=== PATIENT | male | born 1940 | race Caucasian/White ===

== ENCOUNTER → 2023-10-20 06:39 | Day surgery (SDC) | payer MEDICARE, SELFPAY | LOC: GI 06:39 | PROVIDERS: ATTENDING PHYSICIAN Internal Medicine Gastroenterology | DX: K29.50 Unspecified chronic gastritis without bleeding (principal); K44.9 Diaphragmatic hernia without obstruction or gangrene; K31.89 Other diseases of stomach and duodenum; K31.7 Polyp of stomach and duodenum; Q39.9 Congenital malformation of esophagus, unspecified; R10.13 Epigastric pain | CPT/HCPCS: 43239; 88305; 88342 ==

== ENCOUNTER 2023-11-10 23:39 | Emergency (ER) | payer MEDICARE, SELFPAY ==
[2023-11-10 23:39] VITALS: BMI 27.9
[2023-11-10 23:48] VITALS: BP 127/87
--- NOTE | 2023-11-11 00:07 | ED.GENMED ---
Addendum entered and electronically signed by Fallon Jerry NP 11/11/23 09:09:
Patient informed of positive norovirus stool culture. He states he has had no further diarrhea and is feeling better.
Original Note:
History of Present Illness
General
Chief Complaint: Abdominal Symptoms
Time Seen by Provider: 11/10/23 23:51
Travel History
Have you had any contact with someone who has COVID-19?: No
Do you have any symptoms of coronavirus? Fever > 100 degrees, chills, cough, shortness of breath, sore throat, loss of taste or smell, muscle aches, or headache?: No
History of Present Illness
History of Present Illness:
82-year-old male with history of hypertension, hyperlipidemia, and mitral valve prolapse presents to the emergency department for evaluation of acute onset nausea, vomiting, diarrhea, and low-grade fever beginning earlier today. He has had multiple
diarrheal bowel movements. Denies any hematemesis or hematochezia. Denies any abdominal pain at present. Temp recorded at home was 100.2. Has not been able to tolerate any oral fluids. No ill contacts at home
Past History
Past History
ED Past Medical History: Cancer (Prostate cancer), GERD, HTN, Hypercholesterolemia, Valvular disease (Mitral valve prolapse), Psychiatric (Anxiety) and Other (Syncope, Diverticulosis)
ED Past Surgical History: Cholecystectomy and Urological (Prostatectomy 09/30/2014)
Social History
Tobacco: Former smoker
Alcohol: Occasional
Drug: None
Personal:
Living: with family
Employment: Retired
Family History
Family History: Other (Noncontributory)
Review of Systems
Review of Systems
Allergies reviewed?: Yes
All Other Systems: ROS reviewed and negative except as documented in HPI and ROS
Phy Exam
Physical Exam
Physical Exam:
GEN: Well appearing, NAD, WDWN
Eyes: PERRLA, EOMs intact, no scleral icterus
HENT: NCAT, oral mucosa dry,
Lungs: CTAB, no wheezes, rales, rhonchi, normal chest wall excursion
Cardiac: Tachycardic, regular
Abdomen: S, NT, ND, NABS, no masses or hepatosplenomegaly
Neuro: AO x 3
MSK: No gross deformity or ecchymosis.
Skin: No rashes, petechiae. Normal color, no pallor or jaundice.
Psych: Calm, cooperative, proper hygiene
Course
Orders/Labs/Results
Orders:
Orders
11/11/23 00:06
Ondansetron Injectable [Zofran] 4 mg IV NOW STA
11/11/23 00:07
Lactated Ringers [Lr] 1,000 ml IV BOLUS
11/11/23 00:10
Complete Blood Count/With Diff Urgent
Comprehensive Metabolic Panel Urgent
Lipase Urgent
11/11/23 01:10
Lactated Ringers [Lr] 500 ml IV BOLUS
11/11/23 02:47
C difficile Antigen & Toxins Urgent
NICOLASA Source: Feces/Stool
Specimen Description:
Date Specimen was Collected: 11/11/23
Time Specimen was Collected: 02:44
Norovirus by PCR Urgent
NICOLASA Source: Feces/Stool
Specimen Description:
Date Specimen was Collected: 11/11/23
Time Specimen was Collected: 02:44
Abnormal Lab Results
11/11/23
00:10
WBC 12.0 H 10^3/uL
(4.8-10.8)
MPV 10.6 H fL
(7.4-10.4)
Abs Immat Gran (auto) 0.1 H 10^3/uL
(0-0.05)
Absolute Neuts (auto) 11.4 H 10^3/uL
(1.4-6.5)
Absolute Lymphs (auto) 0.1 L 10^3/uL
(1.2-3.4)
Neutrophils % 95.0 H %
(42.2-75.2)
Lymphocytes % 1.1 L %
(20.5-51.1)
Carbon Dioxide 18 L mmol/L
(22-30)
BUN 44 H mg/dl
(9-20)
Creatinine 2.3 H mg/dL
(0.7-1.3)
Glucose 171 H mg/dl
(70-99)
11/11/23 00:10
11/11/23 00:10
Vital Signs
Initial and Last Documented VS:
Initial Vital Signs
Temp Pulse Resp BP Pulse Ox
97.6 F 124 18 127/87 96
11/10/23 23:48 11/10/23 23:48 11/10/23 23:48 11/10/23 23:48 11/10/23 23:48
Last Documented Vital Signs
Temp Pulse Resp BP Pulse Ox
97.6 F 89 18 118/68 96
11/10/23 23:48 11/11/23 02:15 11/11/23 02:15 11/11/23 02:00 11/11/23 02:15
MDM/Problems Addressed
MDM/Problems Addressed:
Patient with acute onset of nausea, vomiting, and diarrhea as well as fever. Suspect self-limited viral syndrome such as norovirus. Patient was resuscitated with 1.5 L of lactated Ringer's in the emergency department. He was able to tolerate p.o.
fluids throughout. Did have 1 bowel movement that was not high in volume however this was sent for C. difficile (upon the patient's request) and norovirus panels. Discussed supportive care and return parameters. He has no reproducible abdominal
tenderness thus there is no indication for abdominal imaging at this time
*Critical Care Note
Total Time (30-74mins, 75-104mins- exclusive of procedures): Not Applicable
ED Attending Note
-
Portions of this chart may have been created with voice recognition software.� Occasional wrong word or��sound alike� substitutions may have occurred due to the inherent limitations of voice recognition software.
Discharge Plan
Departure
Patient Disposition: Home (Routine Discharge)
Date of Disposition: 11/11/23
Time of Disposition: 02:46
Patient with high blood pressure during this ER visit?: No
Discharge Problem:
Gastroenteritis
Instructions: Nausea and Vomiting, Adult (DC)
Prescriptions:
New
ondansetron 4 mg tablet,disintegrating
4 mg PO TIDPRN PRN (Reason: nausea/vomiting) Qty: 10 0RF
No Action
atorvastatin 10 MG tablet
5 mg PO QPM Qty: 0 0RF
losartan 50 MG tablet
12.5 mg PO DAILY
pantoprazole 40 MG tablet,delayed release (DR/EC)
40 mg PO DAILY
Cholecalciferol (Vitamin D3) [Vitamin D3] 50 MCG Capsule
50 mcg PO DAILY
Referrals:
Osmar Palma Jr., DO [Family Provider] -
Interventions
Interventions:
*Risk Screen - Suicide Last Done: 11/10/23 23:50
*General Assessment Last Done: 11/10/23 23:50
*Neglect/Abuse Screening Last Done: 11/10/23 23:50
ED- Fall Risk Assessment Last Done: 11/11/23 00:21
*ED COVID-19 Vaccine History Last Done: 11/11/23 00:21
*Nursing Disposition Last Done: 11/11/23 02:44
FB-Jnuwxn-Lugzgsgrfy Assessment Last Done: 11/11/23 00:20
Discharge Date and Time
Discharge Date/Time: 11/11/23 02:49
[2023-11-11] MEDS: LR 1000 IV (00:11)
[2023-11-11] MEDS: ZOFRAN 4 MG IV (00:11)
[2023-11-11 00:14] VITALS: BP 123/81
[2023-11-11 00:30] VITALS: BP 115/71
[2023-11-11 00:35] LABS: % Basophils 0.2 % (0-2); % Immature Granulocytes 0.4 % (0-0.5); % Lymphocytes 1.1 % (20.5-51.1); % Monocytes 3.3 % (1.7-9.3); Absolute Immature Granulocytes 0.1 10^3/uL (0-0.05); Absolute Lymphocytes 0.1 10^3/uL (1.2-3.4); Absolute Monocytes 0.4 10^3/uL (0.1-0.6); Absolute Neutrophils 11.4 10^3/uL (1.4-6.5); Hematocrit 43.3 % (39.0-52.0); Hemoglobin 14.8 g/dL (13.0-18.0); Mean Corp Hgb Conc. 34.2 g/dL (33.0-37.0); Mean Corpuscular Hgb 29.4 pg (27.0-31.0); Mean Corpuscular Volume 86.1 fL (80.0-94.0); Mean Platelet Volume 10.6 fL (7.4-10.4); Nucleated Red Blood Cells % 0 % (-); Platelet Count 136 10^3/uL (130-400); Red Blood Cell Count 5.03 10^6/uL (4.70-6.10)
[2023-11-11 00:44] LABS: ALT (SGPT) 23 U/L (0-50); AST (SGOT) 25 U/L (17-59); Albumin 4.2 g/dl (3.5-5.0); Alkaline Phosphatase 66 U/L (38-126); Blood Urea Nitrogen 44 mg/dl (9-20); Calcium 9.1 mg/dl (8.4-10.2); Carbon Dioxide 18 mmol/L (22-30); Chloride 106 mmol/L (98-107); Estimated Creatinine Clearance 26 ml/min; Glucose 171 mg/dl (70-99); Potassium 4.2 mmol/L (3.5-5.1); Sodium 138 mmol/L (135-145); Total Bilirubin 0.7 mg/dl (0.2-1.3); Total Protein 6.7 g/dl (6.3-8.2); eGFR 27.83
[2023-11-11 01:00] VITALS: BP 119/69
[2023-11-11 01:08] LABS: Lipase 193 U/L (23-300)
[2023-11-11] MEDS: LR 500 IV (01:16)
[2023-11-11 01:30] VITALS: BP 116/65
[2023-11-11 02:00] VITALS: BP 118/68
== END 2023-11-11 02:49 | disposition home or self-care (01) ==
LOC: EMR 23:39
PROVIDERS: Physician Assistant; EMERGENCY PHYSICIAN Emergency Medicine; FAMILY PHYSICIAN Family Medicine
DX: K52.9 Noninfective gastroenteritis and colitis, unspecified (principal); K21.9 Gastro-esophageal reflux disease without esophagitis; I10 Essential (primary) hypertension; E78.00 Pure hypercholesterolemia, unspecified; I34.1 Nonrheumatic mitral (valve) prolapse; Z87.891 Personal history of nicotine dependence
CPT/HCPCS: 99284; 96374; 96361 ×2; 80053; 83690; 85025; 87324; 87449; 87798

== ENCOUNTER 2024-08-17 09:28 | Emergency (ER) | payer SELFPAY ==
[2024-08-17 09:45] VITALS: BP 132/75
[2024-08-17 10:45] VITALS: BP 128/71
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
[2024-08-17] MEDS: ADACEL 0.5 ML IM (11:43)
[2024-08-17 12:00] VITALS: BP 118/74
[2024-08-17 13:43] VITALS: BP 129/74
== END 2024-08-17 13:43 | disposition home or self-care (01) ==
LOC: EMR 09:28
PROVIDERS: EMERGENCY PHYSICIAN Emergency Medicine; FAMILY PHYSICIAN Family Medicine
DX: S00.01XA Abrasion of scalp, initial encounter (principal); S80.812A Abrasion, left lower leg, initial encounter; S30.810A Abrasion of lower back and pelvis, initial encounter; V49.40XA Driver injured in collision with unspecified motor vehicles in traffic accident, initial encounter; E78.00 Pure hypercholesterolemia, unspecified; I12.9 Hypertensive chronic kidney disease with stage 1 through stage 4 chronic kidney disease, or unspecified chronic kidney disease; N18.9 Chronic kidney disease, unspecified; Z85.46 Personal history of malignant neoplasm of prostate; Z87.891 Personal history of nicotine dependence; Z90.49 Acquired absence of other specified parts of digestive tract; Z90.79 Acquired absence of other genital organ(s); K21.9 Gastro-esophageal reflux disease without esophagitis; I34.1 Nonrheumatic mitral (valve) prolapse; Z23 Encounter for immunization
CPT/HCPCS: 90471; 99284; 70450; 71046; 72125; 90715

== ENCOUNTER → 2024-11-20 14:23 | Outpatient (REF) | payer MEDICARE, SELFPAY | LOC: RAD 14:23 | PROVIDERS: ATTENDING PHYSICIAN Surgery; FAMILY PHYSICIAN Family Medicine | DX: N50.811 Right testicular pain (principal) | CPT/HCPCS: 76870; 93976 ==

== ENCOUNTER → 2025-03-14 13:12 | Outpatient (REF) | payer MEDICARE, SELFPAY | LOC: RAD 13:12 | PROVIDERS: ATTENDING PHYSICIAN Urology; FAMILY PHYSICIAN Family Medicine | DX: C61 Malignant neoplasm of prostate (principal) | CPT/HCPCS: 74176 ==

== ENCOUNTER 2025-04-14 06:24 | Day surgery (SDC) | payer MEDICARE, SELFPAY | END 2025-04-14 12:41 | disposition home or self-care (01) | LOC: GI 06:24 | PROVIDERS: ATTENDING PHYSICIAN Internal Medicine Gastroenterology | DX: Z12.11 Encounter for screening for malignant neoplasm of colon (principal); D12.4 Benign neoplasm of descending colon; D12.5 Benign neoplasm of sigmoid colon; K57.30 Diverticulosis of large intestine without perforation or abscess without bleeding; K64.8 Other hemorrhoids; Z86.0100 Personal history of colon polyps, unspecified | CPT/HCPCS: 45380; 88305 ==

== ENCOUNTER 2025-04-19 03:57 | Emergency (ER) | payer MEDICARE, SELFPAY ==
[2025-04-19 03:57] VITALS: BMI 25.9
[2025-04-19 04:01] VITALS: BP 171/89
--- NOTE | 2025-04-19 04:26 | ED.GENMED ---
History of Present Illness
<Jennifer Mc MD, Resident - Last Filed: 04/19/25 06:47>
General
Chief Complaint: Male Genito-Urinary Symptoms
Source: patient and significant other
Time Seen by Provider: 04/19/25 04:12
History of Present Illness
History of Present Illness:
83-year-old male with past medical history of prostate cancer status post prostatectomy, hypertension, hyperlipidemia, chronic testicular pain comes to the ED due to increased intensity of testicular pain that started around yesterday night. He has
been dealing with this pain since around July of last year. He has had ultrasound done in November which showed possible epididymitis for which she was started on antibiotic therapy. He continued to have lingering pain and it was thought that it
may be referred pain due to hernia versus nerve pain from his back/hip. He has been seeing Dr. Awan for pain management and was told that he should receive a steroid injection in his back (iliosacral joint) to help manage his pain. He was told
that there is no cure for his ailment, but he decided to come in because his pain got much more intense last night. He has not had any recent trauma and the pain is in the same location as his regular pain just more intense.
Past History
<Jennifer Mc MD, Resident - Last Filed: 04/19/25 06:47>
Past History
ED Past Medical History: Cancer (Prostate cancer), GERD, HTN, Hypercholesterolemia, Valvular disease (Mitral valve prolapse), Psychiatric (Anxiety) and Other (Syncope, Diverticulosis)
ED Past Surgical History: Cholecystectomy and Urological (Prostatectomy 09/30/2014)
Social History
Tobacco: Former smoker
Alcohol: Occasional
Drug: None
Personal:
Living: with family
Employment: Retired
Family History
Family History: Other (Noncontributory)
Review of Systems
<Jennifer Mc MD, Resident - Last Filed: 04/19/25 06:47>
Review of Systems
Allergies reviewed?: Yes
All Other Systems: ROS reviewed and negative except as documented in HPI and ROS
Constitutional: Denies fever, fatigue or chills
EENT: Reports no symptoms
Respiratory: Reports no symptoms
Cardiac: Reports no symptoms
ABD/GI: Reports no symptoms
: Reports other (Pain right testicle)
Musculoskeletal: Reports no symptoms
Skin: Reports no symptoms
Neurological: Reports no symptoms
Endocrine: Reports no symptoms
Hematologic/Lymphatic: Reports no symptoms
Psychiatric: Reports no symptoms
Phy Exam
<Jennifer Mc MD, Resident - Last Filed: 04/19/25 06:47>
General Physical Exam
General Presentation: moderate distress
General age: appears stated age
General Skin: warm and dry
General Habitus: elderly
General Mental: anxious
General Hydration: appears well hydrated
Cardiovascular Exam
Cardiovascular Exam: regular rate/rhythm, no edema and no murmur
Pulmonary Exam
Pulmonary Exam: lungs clear, no respiratory distress, no crackles and no wheezing
Genitourinary Exam Male
Exam Male: no testicular swelling
Testicular Exam: Tender to palpation: Right
Epididymis Exam: normal
Skin Exam
Skin Exam: normal color and warm/dry
Course
<Jennifer Mc MD, Resident - Last Filed: 04/19/25 06:47>
Orders/Labs/Results
Orders:
Orders
04/19/25 04:33
US Scrotum Urgent
Comment:
Reason For Exam: R testicular pain
04/19/25 05:51
Urinalysis Reflex To Culture Urgent
Date Specimen was Collected: 04/19/25
Time Specimen was Collected: 05:48
Urine Microscopic Reflex Cult Urgent
04/19/25 06:03
Gabapentin [Neurontin] 300 mg PO NOW STA
Tramadol HCl [Ultram] 50 mg PO NOW STA
Abnormal Lab Results
04/19/25
05:51
Urine Bacteria (Reflex) Few A
(Negative)
Urine Albumin (Reflex) 2+ A
(Neg - Trace)
Vital Signs
Initial and Last Documented VS:
Initial Vital Signs
Temp Pulse Resp BP Pulse Ox
97.5 F 65 20 171/89 96
04/19/25 04:01 04/19/25 04:01 04/19/25 04:01 04/19/25 04:01 04/19/25 04:01
Last Documented Vital Signs
Temp Pulse Resp BP Pulse Ox
97.5 F 65 20 167/75 98
04/19/25 04:01 04/19/25 04:01 04/19/25 04:01 04/19/25 04:37 04/19/25 04:37
<Marilyn Gay, DO - Last Filed: 04/19/25 06:43>
Orders/Labs/Results
Orders:
Orders
04/19/25 04:33
US Scrotum Urgent
Comment:
Reason For Exam: R testicular pain
04/19/25 05:51
Urinalysis Reflex To Culture Urgent
Date Specimen was Collected: 04/19/25
Time Specimen was Collected: 05:48
Urine Microscopic Reflex Cult Urgent
04/19/25 06:03
Gabapentin [Neurontin] 300 mg PO NOW STA
Tramadol HCl [Ultram] 50 mg PO NOW STA
Abnormal Lab Results
04/19/25
05:51
Urine Bacteria (Reflex) Few A
(Negative)
Urine Albumin (Reflex) 2+ A
(Neg - Trace)
Vital Signs
Initial and Last Documented VS:
Initial Vital Signs
Temp Pulse Resp BP Pulse Ox
97.5 F 65 20 171/89 96
04/19/25 04:01 04/19/25 04:01 04/19/25 04:01 04/19/25 04:01 04/19/25 04:01
Last Documented Vital Signs
Temp Pulse Resp BP Pulse Ox
97.5 F 65 20 167/75 98
04/19/25 04:01 04/19/25 04:01 04/19/25 04:01 04/19/25 04:37 04/19/25 04:37
<Jennifer Mc MD, Resident - Last Filed: 04/19/25 06:47>
MDM/Problems Addressed
Differential Diagnosis Includes:
Epididymitis, referred nerve pain from inguinal hernia, urinary tract infection
MDM/Problems Addressed:
84-year-old male with past medical history of prostate cancer status post prostatectomy, hypertension, hyperlipidemia and chronic intermittent right testicular pain comes to the ED due to worsening right-sided testicular pain that worsened intensity
last night.
Will check scrotal ultrasound and UA due to increasing intensity of pain.
Pain management as needed. Will give dose of Tramadol and Gabapentin.
Ultrasound shows no testicular torsion and shows benign cysts in the right testicle
Awaiting on UA to check for any UTI/blood in the urine
Urinalysis did not show any blood/sign of infection
Due to nerve pain like symptoms, will give a trial treatment of Gabapentin and ask patient to follow up with Dr. Awan for pain management and possible iliosacral joint steroid injection
Chronic conditions affecting care: Kidney disease and Cancer (Prostate)
<Jennifer Mc MD, Resident - Last Filed: 04/19/25 06:47>
*Pulse Oximetry
SaO2: 96
Oxygen Mode of Delivery: Room air
Patient hypoxic: no
*Critical Care Note
Total Time (30-74mins, 75-104mins- exclusive of procedures): Not Applicable
ED Attending Note
<Jennifer Mc MD, Resident - Last Filed: 04/19/25 06:47>
-
Portions of this chart may have been created with voice recognition software.� Occasional wrong word or��sound alike� substitutions may have occurred due to the inherent limitations of voice recognition software.
<Marilyn Gay DO - Last Filed: 04/19/25 06:43>
ED Attending Note
Patient seen and examined by attending physician: Yes
I performed a history and physical exam of patient and discussed management with resident, I reviewed resident's note and agree with documented findings and plan of care.: Yes
ED Attending Note:
84-year-old gentleman with history of hypertension, hyperlipidemia, prostate cancer status post prostatectomy. He notes chronic right testicular pain that has been ongoing since July 2024. He does note near daily right testicular pain with
occasional exacerbations of testicular pain. No definitive aggravating nor relieving factor but does admit the pain seems to improve when he is up and about, perhaps worse when he is lying or sitting.
Has had extensive evaluation with urologist. Scrotal ultrasound November of this year showing questionable mild right epididymitis and was treated with a course of antibiotics without relief.
He has had no definitive back pain, no leg pain, no weakness nor numbness but concern for potential neuropathic pain and he has had recent evaluation with pain management, Dr. Awan with plan for steroid injection in his sacral region.
Tonight however he awoke with significant right testicular pain. He denies dysuria urgency and or hematuria.
He has been taking Tylenol without relief.
84-year-old gentleman appears his stated age, awake and alert, pleasant, appears in no acute distress. is accompanying.
Abdomen is rotund, soft, nontender. There is no inguinal tenderness nor palpable masses.
No palpable bony pelvic tenderness.
: Minimal tenderness about the right testicle. There is no scrotal edema nor erythema. No palpable masses.
Right hip without tenderness and full hip range of motion without difficulty nor pain.
Acute on chronic right testicular pain.
Must consider epididymitis, orchitis, radicular pain. Ureteric stone, UTI are less likely.
Will check scrotal ultrasound as well as urinalysis.
06:00
Scrotal ultrasound is unremarkable.
Urinalysis is pending but likely unrevealing.
I do suspect an element of radicular pain and recommend initiation of gabapentin, 300 mg at bedtime and will trial short course of tramadol for as needed moderate to severe pain. Potential side effects discussed.
Ultimately, recommend she follow-up with pain management for planned sacral steroid injection.
Recommend follow-up with urology as well.
Discharge Plan
Departure
Patient Disposition: Home (Routine Discharge)
Date of Disposition: 04/19/25
Time of Disposition: 06:39
Patient with high blood pressure during this ER visit?: Yes
Condition: Fair
Covid-19: Not Applicable
Discharge Problem:
Chronic pain in testicle
Instructions: Neuropathic pain, BLOOD PRESSURE
Prescriptions:
New
gabapentin 300 mg capsule
300 mg PO HS Qty: 30 0RF
tramadol 25 mg tablet
25 mg PO BIDPRN PRN (Reason: moderate pain) Qty: 12 0RF
No Action
atorvastatin 10 MG tablet
5 mg PO QPM Qty: 0 0RF
losartan 50 MG tablet
12.5 mg PO DAILY
pantoprazole 40 MG tablet,delayed release (DR/EC)
40 mg PO DAILY
Cholecalciferol (Vitamin D3) [Vitamin D3] 50 MCG Capsule
50 mcg PO DAILY
ondansetron 4 mg tablet,disintegrating
4 mg PO TIDPRN PRN (Reason: nausea/vomiting) Qty: 10 0RF
Referrals:
Jerry Awan DO [Non-Admitting Privileges, Orthopedics] - Call in 1-3 days for appt
Mert Sigala MD [Active, Urology] - Call in 1-3 days for appt
UNKNOWN - PT DOES,NOT KNOW [Family Provider]
Activity Restrictions/Additional Instructions:
As discussed, chronic testicular pain may be more nerve related. He was sent gabapentin which should help with the nerve pain.
He should follow-up with Dr. Awan for pain management, and steroid injection in the back for further management of pain.
If your symptoms worsen, you develop worsening tenderness, fever, chills and burning with urination, please return to the ED.
Interventions
Interventions:
*Risk Screen - Suicide Last Done: 04/19/25 04:01
*General Assessment Last Done: 04/19/25 04:01
*Neglect/Abuse Screening Last Done: 04/19/25 04:01
*ED- Fall Risk Assessment Last Done: 04/19/25 04:01
*ED COVID-19 Vaccine History Last Done: 04/19/25 04:01
ED-Male Genitourinary Assessment Last Done: 04/19/25 04:31
Discharge Date and Time
Print Language: FRISIAN
[2025-04-19 04:37] VITALS: BP 167/75
[2025-04-19 06:02] LABS: Urine Character Clear (Clear)
[2025-04-19] MEDS: NEURONTIN 300 MG PO (06:11)
[2025-04-19] MEDS: ULTRAM 50 MG PO (06:11)
[2025-04-19 06:34] LABS: Urine Red Blood Cell None Seen /HPF (0-2); Urine White Cell 0-2 /HPF (0-5)
== END 2025-04-19 06:57 | disposition home or self-care (01) ==
LOC: EMR 03:57
PROVIDERS: EMERGENCY PHYSICIAN Emergency Medicine
DX: G89.29 Other chronic pain (principal); N50.811 Right testicular pain; I10 Essential (primary) hypertension; E78.00 Pure hypercholesterolemia, unspecified; I34.1 Nonrheumatic mitral (valve) prolapse; N28.9 Disorder of kidney and ureter, unspecified; K21.9 Gastro-esophageal reflux disease without esophagitis; F41.9 Anxiety disorder, unspecified; Z87.891 Personal history of nicotine dependence; Z85.46 Personal history of malignant neoplasm of prostate; Z90.79 Acquired absence of other genital organ(s)
CPT/HCPCS: 99284; 76870; 81003; 81015; 93976